=== PATIENT | female | born 1990 | race Two or more races ===

== ENCOUNTER 2018-07-31 10:28 | Emergency (ER) | payer OTHER ==
[2018-07-31] MEDS ORDERED: SODIUM CHLORIDE 0.9% 1,000 ML IV ONE (11:25)
[2018-07-31] MEDS ORDERED: DIPHENHYDRAMINE 50MG/ML VIAL IV ONE (11:30)
[2018-07-31] MEDS ORDERED: PROCHLORPERAZINE 10MG/2ML VIAL IV PRN (11:30)
[2018-07-31 11:54] LABS: CLARITY URINE TURBID (CLEAR); COLOR URINE YELLOW (YELLOW); KETONES URINE NEGATIVE (NEGATIVE); LEUKOCYTE ESTERASE URINE 2+ (NEGATIVE); NITRITE URINE NEGATIVE (NEGATIVE); OCCULT BLOOD URINE 2+ (NEGATIVE); PH URINE 8.5 (4.5-8.0); PROTEIN URINE 1+ (NEGATIVE); SPECIFIC GRAVITY URINE 1.029 (1.005-1.030); UROBILINOGEN URINE 0.2 E.U./dL (0.2-1.0)
[2018-07-31] MEDS ORDERED: CEFTRIAXONE 1 G PREMIX 50 ML IV ONE (13:00)
[2018-07-31 13:37] VITALS: BP 105/71
== END 2018-07-31 13:58 | disposition home or self-care (01) ==
LOC: ER 10:28
DX: N39.0 Urinary tract infection, site not specified (principal); R06.02 Shortness of breath; R42 Dizziness and giddiness; Z98.890 Other specified postprocedural states; G43.909 Migraine, unspecified, not intractable, without status migrainosus
CPT/HCPCS: 81003; 81025; 87077; 87086; 87186; 96361; 96365; 96375; 99283; J0696; J1200; J7030; Z7610

== ENCOUNTER 2018-10-21 00:55 | Emergency (ER) | payer MEDICAID, OTHER ==
[~2018-10-21] VITALS: Ht 167.6 cm; Wt 91.0 kg
[2018-10-21 01:15] VITALS: BP 118/73
[2018-10-21 02:09] LABS: CHLORIDE 103 mEq/L (98-107)
[2018-10-21 02:11] LABS: BASOPHILS % 0.6 % (0.0-2.0); EOSINOPHILS % 2.9 % (0.0-5.0); HEMATOCRIT. 40.9 % (36.0-48.0); HEMOGLOBIN. 13.3 g/dL (12.0-16.0); LYMPHOCYTES % 39.5 % (20.0-50.0); MEAN PLATELET VOLUME 8.9 fl (7.4-10.4); PLATELET 268 x1000/uL (130-400); RED BLOOD CELL COUNT 4.93 mill/uL (4.2-5.4); RED CELL DISTRIBUTION WIDTH 14.9 % (11.6-14.6)
[2018-10-21 02:20] LABS: B-HCG QUANTITATIVE < 1 mIU/mL (<3)
== END 2018-10-21 03:10 | disposition home or self-care (01) ==
LOC: ER 01:12
DX: O46.92 Antepartum hemorrhage, unspecified, second trimester (principal); Z3A.20 20 weeks gestation of pregnancy
CPT/HCPCS: 36415; 80053; 82962; 84702; 85025; 99283; Z7610